=== PATIENT | male | born 1970 | race Caucasian/White ===

== ENCOUNTER 2023-04-30 09:24 | Day surgery (SDC) | payer OTHER ==
[2023-04-30 09:47] LABS: Potassium 3.7 mEq/L (3.5-5.1)
[2023-04-30] MEDS ORDERED: Ringers Lactate 1,000 ML IV ONE (09:58)
[2023-04-30] MEDS ORDERED: CEFAZOLIN SODIUM 1 GM/VIAL ONE (09:58)
[2023-04-30 11:18] VITALS: O2SAT 100
[2023-04-30] MEDS ORDERED: LIDOCAINE HCL/EPINEPHRINE 20 ML MDV ONE (11:25)
[2023-04-30] MEDS ORDERED: HEPARIN 5000 UNIT/ML 1 ML VIAL ONE (11:25)
[2023-04-30] MEDS ORDERED: NS 0.9% VIAL 30 ML ONE (11:25)
[2023-04-30] MEDS ORDERED: FENTANYL CITR 100 MCG/2 ML ONE (12:34)
[2023-04-30] MEDS ORDERED: dexAMETHasone 4 MG/ML VIAL ONE (12:34)
[2023-04-30] MEDS ORDERED: LIDOCAINE 1% MPF 5 ML VIAL ONE (12:34)
[2023-04-30] MEDS ORDERED: propofoL 200 MG/20 ML VIAL IV ONE (12:34)
[2023-04-30] MEDS ORDERED: MIDAZOLAM HCL 2 MG/2 ML INJ ONE (12:34)
[2023-04-30] MEDS ORDERED: ONDANSETRON 4 MG/2 ML VIAL ONE (12:34)
--- NOTE | 2023-04-30 13:11 | P.OP ---
Preoperative diagnosis: Esophageal Cancer Postoperative diagnosis: Esophageal Cancer Primary procedure: Placement of Chemotherapy Port a cath Secondary procedure: Using ultrasound and flouroscopy Anesthesia: GETA + Local Estimated blood loss: <5cc Specimen: none Findings: Catheter flowed well, Tip in SVC Complications: None Implants: Port a cath Condition: Good
--- NOTE | 2023-04-30 13:55 | RAD REPORT ---
EXAM DESCRIPTION: RAD - Fluoroscopy <1 Hour - 04/30/2023 1:12 pm CLINICAL HISTORY: Device placement central venous catheter placement FINDINGS: A central venous catheter was placed near the junction of the brachiocephalic/ superior ve na cava. 2 fluoroscopic spot images are submitted. Fluoroscopy time.2 minutes The examination was performed by Dr. Sharp
--- NOTE | 2023-04-30 13:55 | RAD REPORT ---
EXAM DESCRIPTION: [place] Single View04/30/2023 1:33 pm CLINICAL HISTORY: Device placement/central venous catheter placement IMPRESSION: Central venous catheter has been placed near the junction of the brachiocephalic/SVC No pneumothorax
--- NOTE | 2023-04-30 14:54 | OP ---
Date of Procedure: 04/30/2023 Surgeon: Bryce Alfaro MD, Preoperative Diagnosis: Esophageal cancer. Postoperative Diagnosis: Esophageal cancer. Procedure Performed: Placement of a chemotherapy port in the right internal jugular vein using ultra sound and fluoroscopic guidance. Anesthesia: General endotracheal plus local with 0.25% Marcaine. Estimated Blood Loss: Less than 5 cc. Specimen: None. Findings: Catheter flowed well, tip was at the SVC confluence. Complications: None. Implants: The Port-A-Cath. Condition: Good at the end of the procedure. Procedure In Detail: After informed consent was obtained, patient was brought to the operating room, prepped and draped in the usual sterile fashion after adequate anesthesia was achieved. I anestheti zed an area of the right internal jugular vein. Using ultrasound guidance, I cannulated the right in ternal jugular vein using a microintroducer set. A micro wire was advanced at this point. Fluorosco pic guidance confirmed the position in the right atrium of the micro wire. At this point, a small ni ck incision was made over the insertion sites and the microintroducer set was introduced and the oralia dard wire was advanced at this point and confirmed using fluoroscopic guidance. At this point, the s jayda and wire remained in place. I anesthetized the tract along the anterior chest wall of the infr aclavicular position down to subcutaneous tissues. I then made an incision in this area, dissected d own to the preperitoneal fat which was quite thin. The patient was very, very thin. Had very minima l adipose tissue, and as such, the port will be easily visible on the patient's chest wall as he was quite thin, friable and cachectic. At this point, I used the tunneling device to bring the catheter up to the insertion site while keeping the sheath in place. I then placed the introducer sheath usin g Seldinger technique after removing the microintroducer set under fluoroscopic guidance. At this po int, the catheter was introduced, at this point while being clamped and under fluoroscopic guidance, I guided it to the appropriate position and then secured it at this point. I then attached the port at this point to the tubing and placed into the pocket created earlier on the chest wall at the infra clavicular position. I then tested the catheter by flushing sterile saline through there. It flushe d quite easily. Fluoroscopic guidance confirmed the position of the catheter to be in good position at this point. I then packed it with heparin. At this point, I secured the catheter to the prepecto ral fascia using 3 interrupted 2-0 Prolene sutures with good apposition of the port. I then irrigate d all skin incisions and closed the subcutaneous port pocket using interrupted 4-0 Monocryl in a runn ing fashion and Dermabond placed over top. I then closed the neck insertion site using interrupted 3 -0 nylon suture and a sterile dressing placed over top. The patient was then taken out of steep [place] position and remained in neutral position. The patient tolerated the procedure without inc ident or complication, transferred to PACU in good condition. All counts were correct at the end of the case. JOYA/VERONIQUE Voice ID: [id number] Report ID: [id number]
[2023-04-30 14:59] VITALS: BP 113/74; TEMP 97.9
--- NOTE | 2023-04-30 16:25 | EKG ---
Test Date: 2023-04-30 Test Time: 10:17:17 Microfilm Processor: TRACI MEASUREMENT RESULTS: Intervals: Rate: 73 ME: 120 QRSD: 82 QT: 388 QTc: 427 [place]: P: 83 ME: 120 QRS: 6 T: -21 INTERPRETIVE STATEMENTS: Normal sinus rhythm Septal infarct, age undetermined Abnormal ECG No previous ECG available for comparison Electronically Signed On 04-30-23 16:23:53 UI DESIGNER by Abdullahi Gorman
== END 2023-04-30 14:48 | disposition home or self-care (01) ==
LOC: OR 09:24
PROVIDERS: ATTEND Surgery
PROC: 0JH60WZ Insertion of Totally Implantable Vascular Access Device into Chest Subcutaneous Tissue and Fascia, Open Approach (ICD-10-PCS; principal; 2023-04-30 14:00)
DX: C15.9 Malignant neoplasm of esophagus, unspecified (principal)
CPT/HCPCS: 36415; 71045; 76000; 80048; 93005; A4216; C1788; J0690; J1100; J1644; J2001; J2250; J2405; J2704; J3010; J7120